=== PATIENT | female | born 1985 | race Caucasian/White ===

== ENCOUNTER 2017-07-04 07:50 | Emergency (ER) | payer OTHER ==
[2017-07-04 07:55] VITALS: TEMP 98.2
--- NOTE | 2017-07-04 08:19 | EDPHY ---
H & P Stated Complaint: SLIPPED ON ICE, ROLLED R ANKLE. DEFORMITY HPI/ROS: CHIEF COMPLAINT: Ankle injury HISTORY OF PRESENT ILLNESS: The patient is a 32 y/o female arriving with her partner complaining of acute right ankle injury after slipping on ice and falling this morning. She denies preceding symptoms. She had immediate pain and deformity in her right ankle. She denies striking her head, losing consciousness , weakness, paresthesias, chest pain, abdominal pain, or any other injuries. She is normally healthy and does not take any medications. REVIEW OF SYSTEMS: A ten point review of systems was performed and is negative with the exception of the items mentioned in the HPI. Past medical history: Denies Past surgical history: Hernandez tooth removal - no issues with anesthesia Family history: Noncontributory Social history: Partner at bedside. 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 General Appearance: Alert. Vital signs reviewed. BP 152/113. Head: Normocephalic, atraumatic. Eyes: Pupils equal and round, no conjunctival injection, no discharge. Anicteric. ENT, Mouth: Mucous membranes are moist, no oropharyngeal erythema or edema. No trauma. Neck: Nontender to palpation over the cervical spine. Respiratory: Lungs are clear to auscultation; no wheezes, rales, or rhonchi. Cardiovascular: Regular rate and rhythm; no murmur, rub, or gallop. Gastrointestinal: Abdomen is soft and nontender, no masses or organomegaly. Skin: Warm and dry, no rashes on exposed skin, normal color. Back: Nontender to palpation over the thoracolumbar spine. No CVAT. Extremities: Right ankle deformity and dislocation with external rotation, overlying tenderness. No laceration. No other extremity trauma. Neurological: Alert and oriented. Right ankle movement limited by pain, normal sensation. Other extremities moving easily and equally. Psychiatric: Normal affect. - Personal History LMP (Females 10-55): IUD In Place Current Tetanus/Diphtheria Vaccine: Yes Current Tetanus Diphtheria and Acellular Pertussis (TDAP): Yes - Medical/Surgical History Hx Asthma: No Hx Chronic Respiratory Disease: No Hx Diabetes: No Hx Cardiac Disease: No Hx Renal Disease: No Hx Cirrhosis: No Hx Alcoholism: No Hx HIV/AIDS: No Hx Splenectomy or Spleen Trauma: No Other PMH: DENIES - Social History Smoking Status: Never smoked Constitutional: Initial Vital Signs Temperature (C) 36.8 C 07/04/17 07:53 Heart Rate 79 07/04/17 07:53 Respiratory Rate 18 07/04/17 07:53 Blood Pressure 138/94 H 07/04/17 07:53 O2 Sat (%) 100 07/04/17 07:53 O2 Delivery Mode [Post Room Air Procedure 2nd] O2 Delivery Mode Room Air Allergies/Adverse Reactions: No Known Allergies Allergy (Unverified 07/04/17 07:55) Home Medications: Medication Instructions Recorded Ondansetron Odt [Zofran Odt 4 mg 4 mg PO Q4 PRN #10 tab 07/04/17 (*)] oxyCODONE/APAP 5/325 [Percocet 1 - 2 tab PO Q4H PRN #10 tab 07/04/17 5/325 (*)] Medical Decision Making - Diagnostics Imaging: Discussed imaging studies w/ payable manager Radiologist, I viewed and interpreted images myself ED Course/Re-evaluation: This is a healthy 32 y/o female presenting with acute right ankle pain and deformity secondary to slipping and falling on ice. Right ankle is dislocated and externally rotated. Pulses intact right LE. Plan for IV, pain control, imaging, and relocation. 50mcg IV Fentanyl and 4mg IV Zofran administered. X-ray shows trimalleolar fracture/dislocatiojn. Procedure: Conscious sedation. Indication: Ankle fracture and dislocation The patient is an appropriate candidate to tolerate procedural sedation. The patient's vitals signs and mental status are appropriate. The risks, benefits and alternatives of the sedation were discussed with the patient. The patient is ASA classification 1. The patient's Mallampati airway score was 1 and the patient did meet the 3-3-2 airway measurements. A time out was completed. The patient was sedated with 100mg IV Propofol. The patient was monitored with continuous pulse oximetry, manager monitoring and end tidal CO2. There were no complications and no significant hypoxemia. I performed both the sedation and the procedure. The total time I spent at the bedside during the procedural sedation was 20 minutes. The patient was examined after the procedural sedation and has returned to their pre-sedation baseline with normal vital signs and a normal examination. Procedure: Reduction of Fracture Dislocation of Ankle Time-out completed immediately before the procedure. IV established. O2 administered. Placed on pulse oximeter and ETCO2 monitor. Neurovascular exam intact pre-procedure. Given 50mcg IV Fentanyl for pain and 100mg IV Propofol for sedation. The right trimalleolar fracture dislocation was reduced using traction and rotation. Reassessed post-procedure. Neurovascular status intact- normal Motor and sensory exam. Exam indicated reduction. Improved location of fractures on X-ray. Splint applied by myself and tech. The procedure was performed by myself, Dr. Gamez. Post reduction xray shows continued dorsal displacement (although somewhat improved). Consulted with Dr. Guerra, orthopedist. They will see her as an outpatient today for evaluation. He has requested an ankle CT here prior to that appointment. 0.5mg IV Dilaudid administered for pain. Reassessed patient and discussed care and follow up instructions. Splint in good position and CMS intact. She will receive script for Percocet for pain. Return precautions discussed. She is comfortable with this plan. Differential Diagnosis: Considered ddx including but not limited to open/closed fracture, dislocation, sprain, vascular injury, other injuries related to fall such as concussion. - Data Points Medications Given: Discontinued Medications Fentanyl (Sublimaze) 50 mcg IVP EDNOW ONE Stop: 07/04/17 08:26 Last Admin: 07/04/17 08:25 Dose: 50 mcg Hydromorphone HCl (Dilaudid) 0.5 mg IVP EDNOW ONE Stop: 07/04/17 09:42 Last Admin: 07/04/17 09:55 Dose: 0.5 mg Ondansetron HCl (Zofran) 4 mg IVP EDNOW ONE Stop: 07/04/17 08:26 Last Admin: 07/04/17 08:25 Dose: 4 mg Propofol (Diprivan) 100 mg IVP EDNOW ONE Stop: 07/04/17 09:03 Last Admin: 07/04/17 08:45 Dose: 100 mg Departure - Departure Disposition: Home, Routine, Self-Care Clinical Impression: Trimalleolar fracture Qualifiers: Encounter type: initial encounter Fracture type: closed Laterality: right Qualified Code(s): S82.851A - Displaced trimalleolar fracture of right lower leg , initial encounter for closed fracture Ankle dislocation Qualifiers: Encounter type: initial encounter Laterality: right Qualified Code(s): S93.04XA - Dislocation of right ankle joint, initial encounter Condition: Good Instructions: Ankle Fracture (ED) Additional Instructions: 1. Keep splint dry and in place. Use crutches and do not bear weight until cleared by orthopedist. 2. Apply ice and keep leg elevated when possible. 3. Use Percocet as prescribed as needed for severe pain. Take Zofran as prescribed if needed for nausea or vomiting. 4. Follow up with Dr. Guerra, orthopedist, today at 1pm at their office on [facility]. 5. Return to the ED for severe pain, loss of sensation or color changes in your toes, fever, or other worsening of condition. Referrals: Hiren Guerra MD [Medical Doctor] - As per Instructions Stand Alone Forms: Work Excuse Prescriptions: Ondansetron Odt [Zofran Odt 4 mg (*)] 4 mg PO Q4 PRN #10 tab PRN Reason: nausea oxyCODONE/APAP 5/325 [Percocet 5/325 (*)] 1 - 2 tab PO Q4H PRN #10 tab PRN Reason: Pain, Severe Report Scribed for: Grace Gamez Report Scribed by: Zamzam Ocampo Date of Report: 07/04/17 Time of Report: 08:41 Physician Review and Approval Statement: 07/04/17 08:19 Portions of this note were transcribed by the medical van driver. I, Dr. Grace Gamez, personally performed the history, physical exam, and medical decision- making; and confirmed the accuracy of the information in the transcribed note.
[2017-07-04] MEDS ORDERED: fentaNYL 100 MCG/2 ML INJ IVP ONE (08:25)
[2017-07-04] MEDS ORDERED: ONDANSETRON 4 MG/2 ML VIAL IVP ONE (08:25)
[2017-07-04] MEDS ORDERED: PROPOFOL 200 MG/20 ML VIAL ONE (08:40)
[2017-07-04] MEDS ORDERED: PROPOFOL 200 MG/20 ML VIAL IVP ONE (09:02)
[2017-07-04 09:19] VITALS: BP 162/68; PULSE 59; RESP 16; O2SAT 98
[2017-07-04] MEDS ORDERED: HYDROmorphONE/DILAUDID 1 MG/ML INJ IVP ONE (09:41)
== END 2017-07-04 11:57 | disposition home or self-care (01) ==
PROC: 0QSGXZZ Reposition Right Tibia, External Approach (ICD-10-PCS; principal; 2017-07-04)
DX: S82.851A Displaced trimalleolar fracture of right lower leg, initial encounter for closed fracture (principal); W01.0XXA Fall on same level from slipping, tripping and stumbling without subsequent striking against object, initial encounter
CPT/HCPCS: 96374; J1170; J2405; J2704; J3010

== ENCOUNTER 2017-07-05 11:33 | Day surgery (SDC) | payer OTHER ==
[~2017-07-05 11:33] MED LIST: ceFAZolin 2 GM/SWFI 2 GM/20 ML SYR IVP ONE
[2017-07-05] MEDS ORDERED: BUPIVACAINE 0.5% 30 ML SDV ONE (12:38)
[2017-07-05] MEDS ORDERED: ROPIVACAINE HCL 150 MG/30 ML INJ ONE (12:44)
[2017-07-05] MEDS ORDERED: MIDAZOLAM 2 MG/2 ML VIAL ONE (12:45)
[2017-07-05] MEDS ORDERED: LR 1,000 ML IV SCH (13:00)
[2017-07-05] MEDS ORDERED: ceFAZolin 2 GM/SWFI 20 ML SYR IVP ONE (13:21)
--- NOTE | 2017-07-05 13:35 | PDHPUP ---
History & Physical Update H&P update statement: This history and physical update is based on an assessment of the patient which was completed after admission or registration (within 24 hours), but prior to the surgery/procedure.
[2017-07-05] MEDS ORDERED: ONDANSETRON 4 MG/2 ML VIAL ONE ×2 (13:42→18:02)
[2017-07-05] MEDS ORDERED: DEXAMETHASONE 4 MG/ML VIAL ONE (13:42)
[2017-07-05] MEDS ORDERED: ROCURONIUM 50 MG/5 ML VIAL ONE ×2 (13:42→14:36)
[2017-07-05] MEDS ORDERED: fentaNYL 250 MCG/5 ML INJ ONE ×2 (13:43→16:00)
[2017-07-05] MEDS ORDERED: PROPOFOL 200 MG/20 ML VIAL ONE (13:43)
[2017-07-05] MEDS ORDERED: HYDROmorphONE/DILAUDID 2 MG/ML INJ ONE (14:22)
--- NOTE | 2017-07-05 17:20 | POSTOPPROG ---
Post Op Note Date of Operation: 07/05/17 Surgeon: Hiren Guerra Accelerator Systems Director: Param Anesthesia: GET(General Endotracheal) Pre-op Diagnosis: R pilon fx Post-op Diagnosis: same Indication: above Procedure: orif R pilon and fibula fx Inf/Abcess present in the surg proc area at time of surgery?: No EBL: 50-100
[2017-07-05] MEDS ORDERED: MEPERIDINE 25 MG/ML SYR IVP PRN (17:42)
[2017-07-05] MEDS ORDERED: LR 500 ML IV PRN (17:42)
[2017-07-05] MEDS ORDERED: HYDROmorphONE/DILAUDID 1 MG/ML INJ IVP PRN (17:42)
[2017-07-05] MEDS ORDERED: ONDANSETRON 4 MG/2 ML VIAL IVP PRN (17:42)
[2017-07-05] MEDS ORDERED: NALOXONE HCL 0.4 MG/ML INJ IVP PRN (17:42)
--- NOTE | 2017-07-05 17:43 | POSTANESTH ---
Post Anesthetic Evaluation Cardiovascular Status: Normal, Stable Respiratory Status: Normal, Stable Level of Consciousness/Mental Status: Can Participate in Eval Pain Control: Adequate, Prn Tx Ordered Nausea/Vomiting Control: Adequate, Prn Tx Ordered Complications Possibly Related to Anesthesia: None Noted
[2017-07-05 18:27] VITALS: BP 119/68; RESP 14
[2017-07-05] MEDS ORDERED: METOCLOPRAMIDE 10 MG/2 ML VIAL ONE (18:54)
[2017-07-05] MEDS ORDERED: METOCLOPRAMIDE 10 MG/2 ML VIAL IVP ONE (19:30)
[2017-07-05 19:50] VITALS: PULSE 98; TEMP 208.4; O2SAT 96
--- NOTE | 2017-07-06 00:13 | GOP ---
[f rep st] OPERATIVE REPORT DATE OF OPERATION: 07/05/2017 SURGEON: Hiren Guerra MD NONPROFIT FUNDRAISER: Jose Martin Virgen SA ANESTHESIA: General with popliteal block and saphenous block. PREOPERATIVE DIAGNOSIS: Right pilon fracture. POSTOPERATIVE DIAGNOSIS: Right pilon fracture. PROCEDURE PERFORMED: 1. Open reduction and internal fixation, right pilon fracture. 2. Open reduction and internal fixation, right fibula fracture. FINDINGS: SPECIMENS: None. ESTIMATED BLOOD LOSS: 20 mL. INDICATIONS: This is a 32-year-old female who sustained this complex intra-articular pilon fracture with fibula fracture. I counseled her on the risks and benefits of operative intervention including malunion, nonunion, malreduction, arthritis, continued pain, nerve injury, wound problems, infection, need for hardware removal. She elected to proceed. Informed consent was obtained. All questions w ere answered. She was marked preoperatively. DESCRIPTION OF PROCEDURE: She was taken to the operative suite, sterilely prepped and draped in norm al fashion. Time-out was performed verifying site, side, and location with agreement by all members of the team. She was positioned prone. All bony prominences were padded. She was sterilely prepped and draped in normal fashion. Esmarch was utilized. Tourniquet was inflated. The procedure was begun with a pos terolateral approach to the fibula and tibia. I protected neurovascular structures and worked on eit her side of the peroneal tendons. Exposed the fracture site. There were small areas of comminution that needed debrided. I was able to mobilize these. Irrigated out the joint. I made an incision me dial and exposed the medial malleolus fracture and the comminuted medial tibial fracture as well. Mo bilized these fragments, protecting neurovascular structures. I began by reducing things provisional ly and pinning them, and then anatomically reduced the pilon portion and the posterior portion. I ch ecked this fluoroscopically, placed a plate on this, held this with a cortical screw. Checked this f luoroscopically, then placed cortical and locking screws in this to hold this in compression. This d id lead to a very good reduction of the fibula with the syndesmosis still intact. I further reduced the fibula and held this with a clamp. Placed a plate on this. Held this with locking screws distal ly and nonlocking screws proximally. I then worked in the medial incision, placed 4 cancellous screw s in the main medial fragment, held this in compression. I then placed a hook plate after reducing t he medial malleolus and a cannulated screw up this hook plate and then held this with cortical screws achieving compression of this and fixation. This was a stable fixation when I was done. Everything was thoroughly irrigated. X-rays were taken. Tourniquet was deflated. Hemostasis was obtained. I ncisions closed with 0 Vicryl, 2-0 Vicryl, 3-0 Quill, and Dermabond. She was taken to PACU in stable condition. COMPLICATIONS: None. DRAINS: None. CONDITION: Stable. /[id number]/MODL
== END 2017-07-05 19:45 | disposition home or self-care (01) ==
LOC: FSGY 11:33
PROVIDERS: ATTEND Orthopaedic Surgery
PROC: 0QSG04Z Reposition Right Tibia with Internal Fixation Device, Open Approach (ICD-10-PCS; principal; 2017-07-05 13:15)
PROC: 0QSJ04Z Reposition Right Fibula with Internal Fixation Device, Open Approach (ICD-10-PCS; principal; 2017-07-05 13:15)
DX: S82.871A Displaced pilon fracture of right tibia, initial encounter for closed fracture (principal); S82.851A Displaced trimalleolar fracture of right lower leg, initial encounter for closed fracture; W00.0XXA Fall on same level due to ice and snow, initial encounter; Y92.480 Sidewalk as the place of occurrence of the external cause
CPT/HCPCS: 27828; C1769; C1713; J0690; J1100; J1170; J2250; J2405; J2704; J2765; J2795; J3010